=== PATIENT | female | born 2000 | race Caucasian/White ===

== ENCOUNTER 2019-06-21 02:06 | Emergency (ER) | payer MEDICAID ==
[~2019-06-21] VITALS: Ht 170.2 cm; Wt 63.3 kg
[2019-06-21 02:07] VITALS: BP 133/89
--- NOTE | 2019-06-21 02:07 | NUR ---
Pt placed in wheelchair and back to lobby aware to please remains NPO. Asked to provide urne specimen.
--- NOTE | 2019-06-21 02:10 | NUR ---
Dr Collier aware of pt and pt stating that she was told that she had "decreased blood flow" to her r ovary by her previous MD. US ordered.
[2019-06-21] MEDS ORDERED: BCP (02:14)
--- NOTE | 2019-06-21 02:32 | NUR ---
PT TO US, FEMALE FRIEND WIH HER
[2019-06-21 02:43] LABS: HCG UR SG 1.012 (1.003-1.030); MICROSCOPIC NOT IND
[2019-06-21 02:46] LABS: CULTURE INDICATED? NO
--- NOTE | 2019-06-21 03:05 | NUR ---
PT REFUSED TRANSVAGINAL US. GAVI OLIVEIRA AWARE.
[2019-06-21 03:43] LABS: BASOPHILS # (AUTO) 0.03 x10^3/uL (0-0.1); BASOPHILS % (AUTO) 1 % (0-1); EOSINOPHILS # (AUTO) 0.01 x10^3/uL (0-0.4); EOSINOPHILS % (AUTO) 0 % (1-7); LYMPHOCYTES # (AUTO) 1.76 x10^3/uL (1-3.4); LYMPHOCYTES % (AUTO) 41 % (22-44); MD NO; MEAN CORPUSCULAR HEMOGLOBIN 31.7 pg (27.0-34.8); MEAN CORPUSCULAR HGB CONC 34.1 g/dL (32.4-35.8); MEAN CORPUSCULAR VOLUME 92.7 fL (80-100); MEAN PLATELET VOLUME 8.3 fL (7.4-10.4); MONOCYTES % (AUTO) 5 % (2-9); NEUTROPHILS # (AUTO) 2.32 x10^3/uL (1.8-6.8); NEUTROPHILS % (AUTO) 54 % (42-75); PLATELET COUNT 243 x10^3/uL (130-400); RED BLOOD COUNT 3.79 x10^6/uL (3.82-5.3); RED CELL DISTRIBUTION WIDTH 12.7 % (9.6-15.2)
[2019-06-21 03:45] LABS: ALANINE AMINOTRANSFERASE 20 U/L (12-78); ALBUMIN 3.1 g/dL (3.4-5.0); ANION GAP 5 mmol/L (5-15); CALCIUM 8.3 mg/dL (8.5-10.1); CHLORIDE 111 mmol/L (98-107); CREATININE 0.72 mg/dL (0.55-1.02)
[2019-06-21 03:48] LABS: ALKALINE PHOSPHATASE 35 U/L (45-117); BILIRUBIN,TOTAL 0.2 mg/dL (0.2-1.0); TOTAL PROTEIN 6.9 g/dL (6.4-8.2)
== END 2019-06-21 04:27 | disposition home or self-care (01) ==
LOC: ED 04:20
DX: R10.31 Right lower quadrant pain (principal)
CPT/HCPCS: 36415; 76856; 80053; 80307; 81003; 81025; 83690; 85025; 99284